=== PATIENT | male | born 1960 | race Caucasian/White ===

== ENCOUNTER 2017-05-29 19:04 | Observation (INO) ==
[2017-05-29 21:55] LABS: Basophils % 0.5 %; Eosinophils # 0.2 K/mcL (0.0-0.6); Eosinophils % 2.3 %; Hematocrit 40.5 % (37.5-50.1); Hemoglobin 13.6 g/dL (12.9-16.9); Immature Granulocytes % 0.3 % (0-4); Lymphocytes % 25.2 %; Mean Corpuscular HGB Conc 33.6 g/dL (31.6-35.5); Mean Corpuscular Volume 86.4 fL (83.0-100.0); Mean Platelet Volume 10.6 fL (9.4-12.4); Monocytes # 0.7 K/mcL (0.0-1.3); Monocytes % 8.2 %; Neutrophils # 5.1 K/mcL (1.6-8.9); Platelet Count 167 K/mcL (140-400); Red Blood Count 4.69 M/mcL (4.19-5.50); Red Cell Distribution Width 13.6 % (11.5-14.5); Segmented Neutrophils % 63.5 %
--- NOTE | 2017-05-29 21:59 | Emergency Department Note ---
Disposition Clinical Impression: Blood in stool, Blood clots in stool, Melena, Hematochezia, Lung nodule Disposition: Admitted As Inpatient Condition: Good Referrals: Davon Car DO [Primary Care Provider] - Forms: ED Satisfaction Letter Time of Disposition: 23:26 General Adult HPI - General Chief complaint: ED GI Bleed Stated complaint: Rectal bleeding Time Seen by Provider: 05/29/17 21:35 Source: patient, family Limitations: no limitations Nursing Notes Reviewed: Yes Vital Signs Reviewed: Yes - History of Present Illness HPI Narrative: Patient is a 56-year-old male that presents to the emergency department for having bloody bowel movements. He states that this began yesterday and then had another bloody bowel movement this morning. He states that his stools are real dark in color but he does see some bright red blood in his stool. He also reports that he has had clots in his toilet. He states that it is a dark, tarry stool. States he has never had anything like this before. Patient denies any history of Crohn's, colitis or any other bowel issues. Patient states that he does not have any abdominal pain or pain with bowel movements. He does state that he just feels like he is having a lot of gas and like his stomach is rumbling. Pain Scale: 0 - Related Data Home Medications Medication Instructions Recorded Confirmed Folic Acid 1 mg PO DAILY 10/31/15 10/31/15 Lisinopril 10 mg PO DAILY 10/31/15 10/31/15 Metformin HCl [Glucophage] 1,000 mg PO BIDWM 10/31/15 10/31/15 Potassium Chloride [K-Tab ER] 20 meq PO QAM 10/31/15 10/31/15 Torsemide [Demadex] 20 mg PO BID 10/31/15 10/31/15 predniSONE [PredniSONE] 5 mg PO DAILY 10/31/15 10/31/15 traMADol [Ultram] 100 mg PO TID PRN 10/31/15 10/31/15 Previous Rx's Medication Instructions Recorded Aspirin Enteric Coated [Aspirin EC] 325 mg PO QAM #30 tablet. 11/01/15 Atorvastatin [Lipitor] 40 mg PO HS #30 tablet 11/01/15 Allergies Allergy/AdvReac Type Severity Reaction Status Date / Time No Known Allergies Allergy Verified 01/20/15 10:17 All systems ED: reviewed and negative except as stated. Constitutional: Reports: weakness Gastrointestinal: Reports: hematemesis, melena Past Medical History - Past Medical History Medical history: Reports: diabetes, hypertension, RA Surgical history: Reports: other (Bilateral knees) Psychiatric history: Reports: no psych history - Social History Smoking Status: Former smoker Smokeless Tobacco Status: No Alcohol use: Reports: none Drug use: Reports: none Physical Exam - General Limitations: no limitations General appearance: alert, in no apparent distress - Head Head exam: atraumatic, normocephalic - Eye Eye exam: Present: normal appearance, EOMI - Neck Neck exam: Present: normal inspection, full ROM, trachea midline - Respiratory Respiratory exam: Present: normal lung sounds bilaterally. Absent: respiratory distress, wheezes - Cardiovascular Cardiovascular exam: Present: regular rate, normal rhythm, normal heart sounds, +S1, +S2 - Abdominal Exam Abdominal exam: Present: soft, tenderness, normal bowel sounds Abdominal tenderness: Present: LLQ, mild - Rectal Exam Counselor Camp present during exam: No Rectal exam: Present: normal rectal tone, bloody stool - Neurological Exam Neurological exam: Present: alert, oriented X3 - Psychiatric Psychiatric exam: Present: normal affect, normal mood - Skin Skin exam: Present: warm, dry, intact Course Vital Signs Temperature 98.4 F 05/29/17 19:39 Pulse Rate 99 05/29/17 19:39 Respiratory Rate 18 05/29/17 19:39 Blood Pressure 171/85 05/29/17 19:39 O2 Sat by Pulse Oximetry 97 05/29/17 19:39 Temperature 98.4 F 05/29/17 19:39 Pulse Rate 99 05/29/17 19:39 Respiratory Rate 18 05/29/17 19:39 Blood Pressure 171/85 05/29/17 19:39 O2 Sat by Pulse Oximetry 97 05/29/17 19:39 Oxygen Delivery Oxygen Delivery Room Air Medical Decision Making - MDM Narrative Medical decision making narrative: Due to the patient having blood in stool we will order a CBC, CMP, lactic, troponin, CT of the abdomen and pelvis, fecal occult and type and screen. Patient had an elevated blood glucose of 283 and a positive fecal occult. Patient has stable hemoglobin. Lactic was 1.2. Troponin was negative. CT scan was negative for obstructive uropathy however there is concern for possible metastatic disease to the lung. So we have ordered a CT of the chest. The patient will need to be admitted to the hospital for further evaluation and management. Patient is currently stable but due to the amount of blood that the patient states that he has been passing in his stool and having a positive fecal occult suspect that the patient's hemoglobin may trending downward. Recommended therapy repeat hemoglobin and hematocrits. I called and spoke to the hospice and they recommended getting a dose of 50 mg of hydrocortisone to the patient having been on chronic steroids. Also started the patient on Protonix due to this possibly being an upper GI bleed. CT of the chest showed a pulmonary nodule. There is also possible pulmonary hypertension was noted on CT scan which could be related to all my valvular disease. Results of the CT scans have been relayed to the patient and expressed understandings of these findings. He recommended that the patient follow-up with pulmonology due to the lung nodule. I spoke to the hospital was negative except for the patient to their service. The patient will be admitted to the hospital at this time. - Medical Records Medical records reviewed: Yes I reviewed the patient's medical records. - Lab Data Lab results reviewed: Yes I reviewed the patient's lab results. Result diagrams: 05/29/17 21:47 05/29/17 21:47 Lab Results 05/29/17 05/29/17 05/29/17 Range/Units 21:47 21:47 21:47 WBC 8.0 (4.3-11.1) K/mcL RBC 4.69 (4.19-5.50) M/mcL Hgb 13.6 (12.9-16.9) g/dL Hct 40.5 (37.5-50.1) % MCV 86.4 (83.0-100.0) fL MCH 29.0 (28.0-33.3) pg MCHC 33.6 (31.6-35.5) g/dL RDW 13.6 (11.5-14.5) % Plt Count 167 (140-400) K/mcL MPV 10.6 (9.4-12.4) fL Immature Gran % 0.3 (0-4) % Seg Neutrophils % 63.5 % Lymphocytes % 25.2 % Monocytes % 8.2 % Eosinophils % 2.3 % Basophils % 0.5 % Neutrophils # 5.1 (1.6-8.9) K/mcL Lymphocytes # 2.0 (0.6-4.6) K/mcL Monocytes # 0.7 (0.0-1.3) K/mcL Eosinophils # 0.2 (0.0-0.6) K/mcL Basophils # 0.0 (0.0-0.2) K/mcL PT 10.8 (9.4-12.1) Seconds INR 1.0 APTT 26.0 (26.0-36.0) Seconds Sodium 133 L (136-145) mEq/L Potassium 4.2 (3.5-5.1) mEq/L Chloride 103 (98-107) mEq/L Carbon Dioxide 25 (23-29) mEq/L BUN 17 (6-20) mg/dL Creatinine 0.77 (0.70-1.30) mg/dL Est GFR ( Amer) > 60 (> 60) Est GFR (Non-Af Amer) > 60 (> 60) BUN/Creatinine Ratio 22 (6-26) Glucose 283 H (70-105) mg/dL Calculated Osmolality 288 (280-300) Lactic Acid (0.5-2.2) mmol/L Calcium 9.2 (8.6-10.3) mg/dL Total Bilirubin 0.7 (0.3-1.0) mg/dL AST 15 (13-39) Units/L ALT 27 (7-52) Units/L Alkaline Phosphatase 98 (34-104) Units/L Troponin I (< 0.04) ng/mL Serum Total Protein 6.6 (6.4-8.9) g/dL Albumin 4.0 (3.5-5.7) g/dL Globulin 2.6 (2.4-3.5) g/dL Albumin/Globulin Ratio 1.5 (1.1-2.2) Lipase 13 (11-82) Units/L Stool Occult Blood (Negative) 05/29/17 05/29/17 05/29/17 Range/Units 21:47 21:47 21:58 WBC (4.3-11.1) K/mcL RBC (4.19-5.50) M/mcL Hgb (12.9-16.9) g/dL Hct (37.5-50.1) % MCV (83.0-100.0) fL MCH (28.0-33.3) pg MCHC (31.6-35.5) g/dL RDW (11.5-14.5) % Plt Count (140-400) K/mcL MPV (9.4-12.4) fL Immature Gran % (0-4) % Seg Neutrophils % % Lymphocytes % % Monocytes % % Eosinophils % % Basophils % % Neutrophils # (1.6-8.9) K/mcL Lymphocytes # (0.6-4.6) K/mcL Monocytes # (0.0-1.3) K/mcL Eosinophils # (0.0-0.6) K/mcL Basophils # (0.0-0.2) K/mcL PT (9.4-12.1) Seconds INR APTT (26.0-36.0) Seconds Sodium (136-145) mEq/L Potassium (3.5-5.1) mEq/L Chloride (98-107) mEq/L Carbon Dioxide (23-29) mEq/L BUN (6-20) mg/dL Creatinine (0.70-1.30) mg/dL Est GFR ( Amer) (> 60) Est GFR (Non-Af Amer) (> 60) BUN/Creatinine Ratio (6-26) Glucose (70-105) mg/dL Calculated Osmolality (280-300) Lactic Acid 1.2 (0.5-2.2) mmol/L Calcium (8.6-10.3) mg/dL Total Bilirubin (0.3-1.0) mg/dL AST (13-39) Units/L ALT (7-52) Units/L Alkaline Phosphatase (34-104) Units/L Troponin I < 0.03 (< 0.04) ng/mL Serum Total Protein (6.4-8.9) g/dL Albumin (3.5-5.7) g/dL Globulin (2.4-3.5) g/dL Albumin/Globulin Ratio (1.1-2.2) Lipase (11-82) Units/L Stool Occult Blood Positive A (Negative)
[2017-05-29 22:01] LABS: Prothrombin Time 10.8 Seconds (9.4-12.1)
--- NOTE | 2017-05-29 22:02 | Emergency Department Note ---
START Narrative - START START: I have personally performed a face to face evaluation on this patient. I have reviewed and agree with the care plan. History and Exam by me shows: Complains of hematochezia. Non-peritoneal abdominal exam. We will obtain CT scan, basic labs, given the degree of blood he is describing it would proceed with admission for further evaluation and trending of the hematocrit and hemoglobin.
[2017-05-29 22:09] LABS: Alanine Aminotransferase 27 Units/L (7-52); Albumin/Globulin Ratio 1.5 (1.1-2.2); Alkaline Phosphatase 98 Units/L (34-104); Aspartate Amino Transferase 15 Units/L (13-39); BUN/Creatinine Ratio 22 (6-26); Bilirubin,Total 0.7 mg/dL (0.3-1.0); Blood Urea Nitrogen 17 mg/dL (6-20); Calcium 9.2 mg/dL (8.6-10.3); Carbon Dioxide 25 mEq/L (23-29); Chloride 103 mEq/L (98-107); Globulin 2.6 g/dL (2.4-3.5); Glucose 283 mg/dL (70-105); Lipase 13 Units/L (11-82); Osmolality,Calculated 288 (280-300); Potassium 4.2 mEq/L (3.5-5.1); Sodium 133 mEq/L (136-145); Total Protein 6.6 g/dL (6.4-8.9); eGFR For African Americans > 60 (> 60); eGFR For Non-African Americans > 60 (> 60)
[2017-05-29] MEDS ORDERED: Hydrocortisone Sodium Succ 100 MG/2 ML VIAL IVP ONE (23:15)
[2017-05-29] MEDS ORDERED: Pantoprazole 80 MG in Water for inj. (sterile) 10 ML IVP ONE (23:21)
[2017-05-29] MEDS: Pantoprazole 40 MG in 0.9 % Sodium Chloride Mini Bag 100 ML IVC SCH (23:38)
--- NOTE | 2017-05-29 23:52 | Emergency Department Note ---
START Narrative - START START: Dr. Bruno notified of CT read by phone.
[2017-05-30] MEDS ORDERED: Naloxone 0.4 MG/ML INJ IVP PRN (02:15)
[2017-05-30] MEDS ORDERED: Acetaminophen 325 MG TABLET PO PRN (02:15)
[2017-05-30] MEDS ORDERED: *HR* Dextrose 50 % in Water (Syg) 50 ML SYRINGE IVP PRN (02:19)
[2017-05-30] MEDS ORDERED: Dextrose Gel 15 GM/37.5 ML TUBE PO PRN ×2 (02:19)
[2017-05-30] MEDS ORDERED: D5% in Water 1,000 ML IVC PRN (02:19)
--- NOTE | 2017-05-30 03:16 | Internal Med History&Physical ---
Date of Encounter: 05/30/17 Time of Encounter: 01:00 Assessment and Plan (1) Rectal bleed Current visit: Yes Status: Acute Pt report rectal bleed with dark blood, FOBT positive. - Pt's Hgb and Vitals are stable now. - Cont to monitor vitals and H/H closely - IV PPI drip - NPO, IVF - GI consult. (2) Lung nodule Current visit: Yes Status: Acute Incidentally finding from CT chest. Pt was informed and will f/u with pulmonology as outpatient. (3) Morbid obesity with BMI of 40.0-44.9, adult Current visit: No Status: Acute Need life style modification. (4) HTN (hypertension) Current visit: No Status: Chronic BP is not high now, will hold BP med at this point, resume home med when diet is resumed. Qualifiers: Hypertension type: essential hypertension Qualified Code(s): I10 - Essential (primary) hypertension (5) Diabetes mellitus Current visit: No Status: Chronic Will place pt on SSI Qualifiers: Diabetes mellitus type: type 2 Diabetes mellitus complication status: with unspecified complications Diabetes mellitus local company intermodal truck driver insulin use: without local company intermodal truck driver use Qualified Code(s): E11.8 - Type 2 diabetes mellitus with unspecified complications (6) DVT prophylaxis Current visit: No Status: Acute EPCD (7) Abnormal EKG Current visit: Yes Status: Acute Pt's EKG shows possibly altered sinus and junctional rhythm, no bradycardia, pt has no chest pain or palpitation. - Will place pt on tele. - Wanting for the final report of EKG from cardiology. - Cardio consult if indicated. (8) Chronic steroid use Current visit: Yes Status: Acute Pt Will hold po prednisone and place on stress dose of hydracortisone. (9) Pulmonary valve disease Current visit: Yes Status: Acute Pt said he has pulmonary valve disease since , not sure what kind of abnormality. Two previous Echo reviewed, PV is not well visualized per echo. Internal Medicine - H&P: HPI Chief complaint: Rectal bleeding Admitted From: Home Plans for Post Hospital Care: Home History of present illness: Mr. Granados is a 56 year old male with hx of RA on chronic steroid use, DM, HTN, pulmonary valve disease from , present to ER for rectal bleeding. Pt said since last night, he noticed dark blood in stool and mixed with stool. He again noticed dark blood in stool in the morning today and in the evening, with some clots. 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 Pt denies abd pain, nausea, or vomiting. He has on and off diarrhea for about 3-4 weeks. Pt denies lightheaded, dizziness, SOB, or chest pain. In ER, his vitals and Hgb is stable. Pt was admitted for GI bleed. Pt has never had colonoscope done before. Past Med Surg Social Fam HX - Past Medical History Medical history: diabetes, hypertension, RA Psychiatric history: no psych history - Past Surgical History Surgical History: other (Bilateral knees) - Social History Smoking Status: Former smoker Smokeless Tobacco Status: No Alcohol use: none Drug use: none - Family History Mother Living Status: Still Living Hx Family Endocrine Disorder: Yes (diabetes) Hx Family Neurologic Disorders: No Internal Medicine - H&P: Meds Folic Acid 1 mg PO DAILY 10/31/15 [History] Lisinopril 10 mg PO DAILY 10/31/15 [History] Metformin HCl [Glucophage] 1,000 mg PO BIDWM 10/31/15 [History] Potassium Chloride [K-Tab ER] 20 meq PO QAM 10/31/15 [History] Torsemide [Demadex] 20 mg PO BID 10/31/15 [History] predniSONE [PredniSONE] 5 mg PO DAILY 10/31/15 [History] traMADol [Ultram] 100 mg PO TID PRN 10/31/15 [History] Aspirin Enteric Coated [Aspirin EC] 325 mg PO QAM #30 tablet. 11/01/15 [Rx] Atorvastatin [Lipitor] 40 mg PO HS #30 tablet 11/01/15 [Rx] 3 Allergy/AdvReac Type Severity Reaction Status Date / Time No Known Allergies Allergy Verified 01/20/15 10:17 All Systems PM: A 10-system review of systems was performed and is negative for pertinent findings except as documented above in the HPI. - Constitutional Vitals: Temp Pulse Resp BP Pulse Ox 97.8 F 96 16 138/75 95 05/30/17 00:20 05/30/17 00:20 05/30/17 00:20 05/30/17 00:20 05/30/17 00:20 General appearance: Present: A&O X 3, morbidly obese, no acute distress, answers questions appropriately - Head Head exam: Present: atraumatic, normocephalic - Eye Eye exam: Present: PERRL, conjuntiva pink, sclera anicteric Pupils: Present: PERRL - Neck Neck exam general surgery: Present: supple, trachea midline. Absent: lymphadenopathy - Respiratory Respiratory exam: Present: CTAB. Absent: accessory muscle use, rales, rhonchi, wheezes - Cardiovascular Cardiovascular exam: Present: irregular rhythm, +S1, +S2. Absent: diastolic murmur, gallop, rubs, systolic murmur - GI/Abdominal GI/Abdominal exam: Present: normal bowel sounds, soft, no peritoneal signs. Absent: distended, tenderness - Extremities Exam Extremities exam: Present: warm, radial pulses palpable and symmetrical. Absent : calf tenderness, cyanotic, pedal edema - Neurological Exam Neurological exam: Present: CN II-XII intact, oriented X3, no focal deficits. Absent: pronater drift, facial droop, speech deficit - Skin Skin exam: Present: dry, intact Internal Med - H&P Results - Labs CBC & Chem 7: 05/29/17 21:47 05/29/17 21:47 - EKG Data -: EKG Interpreted by Myself (seems alternated sinus and junctional rhythms with PACs) - EKG Data Prior EKG available for review: yes When compared to previous EKG: there are significant changes Interpretation IM: normal EKG
[2017-05-30] MEDS: Pantoprazole 40 MG in 0.9 % Sodium Chloride Mini Bag 100 ML IVC SCH (03:49)
[2017-05-30] MEDS: 0.9 % Sodium Chloride 1,000 ML IVC SCH ×2 (03:49→13:30)
[2017-05-30 05:49] LABS: Basophils % 0.5 %; Eosinophils % 0.4 %; Hematocrit 39.7 % (37.5-50.1); Hemoglobin 13.1 g/dL (12.9-16.9); Immature Granulocytes % 0.4 % (0-4); Lymphocytes # 1.3 K/mcL (0.6-4.6); Lymphocytes % 15.3 %; Mean Corpuscular Hemoglobin 28.7 pg (28.0-33.3); Mean Corpuscular Volume 87.1 fL (83.0-100.0); Mean Platelet Volume 10.8 fL (9.4-12.4); Monocytes # 0.5 K/mcL (0.0-1.3); Monocytes % 5.8 %; Neutrophils # 6.4 K/mcL (1.6-8.9); Platelet Count 172 K/mcL (140-400); Red Blood Count 4.56 M/mcL (4.19-5.50); Red Cell Distribution Width 13.6 % (11.5-14.5); Segmented Neutrophils % 77.6 %
[2017-05-30 06:14] LABS: BUN/Creatinine Ratio 24 (6-26); Blood Urea Nitrogen 18 mg/dL (6-20); Calcium 9.1 mg/dL (8.6-10.3); Carbon Dioxide 23 mEq/L (23-29); Chloride 105 mEq/L (98-107); Glucose 242 mg/dL (70-105); Magnesium 1.8 mg/dL (1.6-2.6); Osmolality,Calculated 290 (280-300); Potassium 4.3 mEq/L (3.5-5.1); Sodium 135 mEq/L (136-145); eGFR For African Americans > 60 (> 60); eGFR For Non-African Americans > 60 (> 60)
[2017-05-30] MEDS: Insulin LISPRO 300 UNITS/3 ML VIAL SQ SCH ×4 (06:33→23:20)
[2017-05-30] MEDS ORDERED: Hydrocortisone Sodium Succ 100 MG/2 ML VIAL IVP SCH (08:00)
[2017-05-30] MEDS ORDERED: traMADol 50 MG TABLET PO PRN (08:48)
[2017-05-30] MEDS: traMADol 50 MG TABLET PO PRN ×2 (09:18→20:24)
--- NOTE | 2017-05-30 11:43 | Gastroenterology Consult Note ---
<Steffany Fitzgerald - Last Filed: 05/30/17 11:40> Date of Encounter: 05/30/17 Time of Encounter: 09:30 - Assessment and plan (1) Rectal bleed Current Visit: Yes Status: Acute Assessment and plan: 56 year old male with rectal bleeding and passing clots. He is on asa and chronic prednisone at home. He denies prior scopes. He denies abdominal pain, nausea and vomiting. Hgb is stable, will monitor. Will give clear liquids today , prep for colonoscopy and schedule for tomorrow. - Time Spent With Patient Total time spent is greater than 50% in coordination of care (as documented) at patient's floor/unit and/or counseling patient: GI History of Present Illness - Data of Consult Patient: new to practice Consult date: 05/30/17 Requesting Physician: Woo Khanna - Consult Narrative Reason for consult: gi bleed History of present illness: Mr. Granados is a 56 year old male with hx of RA on chronic steroid use, DM, HTN, pulmonary valve disease from , present to ER for rectal bleeding. He states he had one dark red stool followed by several bright red stools with blood clots yesterday. He denies nausea, or vomiting. He reports increased GERD symptoms the last month and has been taking TUMS, he denies any PPI at home. He reports feeling very weak yesterday. He has on and off diarrhea for about 3-4 weeks. Pt denies lightheaded, dizziness, SOB, or chest pain. In ER, his vitals and Hgb was 13.1. Colonoscopy: denies EGD: denies NSAIDS/ASA ASA 325 mg Anticoagulants: denies Past Med Surg Social Fam HX - Past Medical History Medical history: diabetes, hypertension, RA Psychiatric history: no psych history - Past Surgical History Surgical History: other (Bilateral knees) - Social History Smoking Status: Former smoker Smokeless Tobacco Status: No Alcohol use: none Drug use: none - Family History Mother Living Status: Still Living Hx Family Endocrine Disorder: Yes (diabetes) Hx Family Neurologic Disorders: No Review of Systems: GI: as per SN[place]QUAL[place]E GENERAL: denies fever, or chills EYES: denies yellow discoloration ENT: denies pain with swallowing or difficulty swallowing CARDIO: denies chest pain, palpitations RESP: No Shortness of breath with exertion : denies change in color of urine NEURO: weakness HEME: Denies any bruising MS: denies joint pain, joint swelling or back pain. DERM: denies rash or itching - Constitutional Vitals: Temp Pulse Resp BP Pulse Ox 98.4 F 84 16 133/76 96 05/30/17 11:17 05/30/17 11:17 05/30/17 11:17 05/30/17 11:17 05/30/17 11:17 Exam: CONSTITUTIONAL:~alert, no acute distress.~HEAD:~normocephalic.~EYES:~no jaundice.~NECK:~no obvious swelling.~HEART:~regular rate and rhythm, no murmurs. ~LUNGS:~bilateral good air entry.~ABDOMEN:~obese, non distended, soft, non tender, no masses palpable, no organomegaly.~RECTAL EXAM:~Deferred.~EXTREMITIES: ~no clubbing, cyanosis or edema.~SKIN:~no stigmata of chronic liver disease.~ NEUROLOGIC:~no obvious focal defect.~~~~ Results - Labs CBC & Chem 7: 05/30/17 05:38 05/30/17 05:38 Labs: Last Result Calcium 9.1 mg/dL (8.6-10.3) 05/30/17 05:38 Troponin I < 0.03 ng/mL (< 0.04) 05/29/17 21:47 Stool Occult Blood Positive (Negative) A 05/29/17 21:58 Entire Visit Hgb 13.1 g/dL (12.9-16.9) 05/30/17 05:38 Hct 39.7 % (37.5-50.1) 05/30/17 05:38 PT 10.8 Seconds (9.4-12.1) 05/29/17 21:47 Total Bilirubin 0.7 mg/dL (0.3-1.0) 05/29/17 21:47 AST 15 Units/L (13-39) 05/29/17 21:47 ALT 27 Units/L (7-52) 05/29/17 21:47 Lipase 13 Units/L (11-82) 05/29/17 21:47 - ABG ABG results: PT/INR, D-dimer PT 10.8 Seconds (9.4-12.1) 05/29/17 21:47 Consult Discharge Plan - Plan Referrals: Daovn Car DO [Primary Care Provider] - <Tiffani Rodney - Last Filed: 05/30/17 14:46> Date of Encounter: 05/30/17 Time of Encounter: 10:00 - Time Spent With Patient Total time spent is greater than 50% in coordination of care (as documented) at patient's floor/unit and/or counseling patient: GI History of Present Illness - Data of Consult Requesting Physician: Woo Khanna - Consult Narrative History of present illness: Mr. Granados is a 56 year old male - Constitutional Vitals: Temp Pulse Resp BP Pulse Ox 98.4 F 84 16 133/76 96 05/30/17 11:17 05/30/17 11:17 05/30/17 11:17 05/30/17 11:17 05/30/17 11:17 Results - Labs CBC & Chem 7: 05/30/17 05:38 05/30/17 05:38 Labs: Last Result Calcium 9.1 mg/dL (8.6-10.3) 05/30/17 05:38 Troponin I < 0.03 ng/mL (< 0.04) 05/29/17 21:47 Stool Occult Blood Positive (Negative) A 05/29/17 21:58 Entire Visit Hgb 13.1 g/dL (12.9-16.9) 05/30/17 05:38 Hct 39.7 % (37.5-50.1) 05/30/17 05:38 PT 10.8 Seconds (9.4-12.1) 05/29/17 21:47 Total Bilirubin 0.7 mg/dL (0.3-1.0) 05/29/17 21:47 AST 15 Units/L (13-39) 05/29/17 21:47 ALT 27 Units/L (7-52) 05/29/17 21:47 Lipase 13 Units/L (11-82) 05/29/17 21:47 - ABG ABG results: PT/INR, D-dimer PT 10.8 Seconds (9.4-12.1) 05/29/17 21:47 - Attending Attestation I examined this patient and my medical decision-making was reviewed with the Resident Physician. I agree with the documented findings, disposition and treatment plan as described except to the extent set forth below. Patient with rectal bleeding bleeding and also has new onset GERD. We will do an EGD for his GERD symptoms and also do a colonoscopy because of lower GI bleeding
[2017-05-30] MEDS ORDERED: SODIUM CHLORIDE/NAHCO3/KCL/PEG 4,000 ML SOLN.RECON PO ONE (16:00)
[2017-05-30] MEDS: Pantoprazole 40 MG VIAL IVP SCH (17:08)
[2017-05-31] MEDS: Pantoprazole 40 MG VIAL IVP SCH (06:46)
[2017-05-31] MEDS: Insulin LISPRO 300 UNITS/3 ML VIAL SQ SCH (06:51)
[2017-05-31 07:30] LABS: BUN/Creatinine Ratio 20 (6-26); Blood Urea Nitrogen 15 mg/dL (6-20); Calcium 8.6 mg/dL (8.6-10.3); Carbon Dioxide 22 mEq/L (23-29); Chloride 107 mEq/L (98-107); Glucose 171 mg/dL (70-105); Osmolality,Calculated 285 (280-300); Potassium 3.9 mEq/L (3.5-5.1); Sodium 135 mEq/L (136-145); eGFR For African Americans > 60 (> 60); eGFR For Non-African Americans > 60 (> 60)
--- NOTE | 2017-05-31 07:33 | Anesthesia Evaluation PreOp ---
Date of Encounter: 05/31/17 Time of Encounter: 07:31 - Past History Planned Operation: Colonoscopy Cardiac History: HTN Pulmonary History: Former smoker (quit over 10 years ago), Other (Lung nodule) [employer]ILER [employer] History: TIA (4 years ago) Other Medical History: Diabetes Type II, Other (Morbid Obesity, BMI-43.8) Anesthesia History: No Prior Anesthetic Complications, Past Anesthesia ( Bilateral TKR) Alcohol Use: none Drug use: none Medications and Allergies Lisinopril 10 mg PO DAILY 10/31/15 [History] Metformin HCl [Glucophage] 1,000 mg PO BIDWM 10/31/15 [History] Potassium Chloride [K-Tab ER] 20 meq PO QAM 10/31/15 [History] Torsemide [Demadex] 20 mg PO BID 10/31/15 [History] predniSONE [PredniSONE] 2.5 mg PO DAILY 10/31/15 [History] traMADol [Ultram] 100 mg PO TID PRN 10/31/15 [History] Aspirin Enteric Coated [Aspirin EC] 325 mg PO QAM #30 tablet. 11/01/15 [Rx] Atorvastatin [Lipitor] 40 mg PO HS #30 tablet 11/01/15 [Rx] Tofacitinib Citrate [Xeljanz Xr] 1 tab PO DAILY 05/30/17 [History] 3 Allergy/AdvReac Type Severity Reaction Status Date / Time No Known Allergies Allergy Verified 01/20/15 10:17 - Meds/Allergy Pre-op Review Medications Reviewed: Yes Allergies Reviewed: Yes Beta Blockers on Current Med List: No Anesthesia Results - Labs 05/30/17 05:38 05/31/17 06:45 ECHO: Date of Study: 11/01/2015 Impressions: LVEF 55%. Normal left ventricular size and systolic function. There is evidence of mild diastolic dysfunction of the left ventricle. Normal right ventricular size and function. No significant valvular dysfunction. No significant TR gradient to estimate RVSP. Saline contrast injection was suboptimal for detection of PFO. - Imaging EKG: report reviewed (SINUS TACHYCARDIA POSSIBLE RIGHT VENTRICULAR CONDUCTION DELAY) Anesthesia Exam Vital Signs/O2 Sat, Most Current Temp Pulse Resp BP Pulse Ox 98.4 F 80 20 160/95 95 05/31/17 07:16 05/31/17 07:16 05/31/17 07:16 05/31/17 07:16 05/31/17 07:16 NPO (# of Hours): > 8 hrs Pain Scale: 0 Pain Scale Used: Numeric (1 - 10) - HEENT Pupil (Motor): Pupils equal, EOMI Mallampati: III Teeth: Normal Oral Opening: Greater than 3 - BOILER FIREMAN LOC: Oriented BOILER FIREMAN Motor: Normal RUE, Normal LUE, Normal RLE, Normal LLE, Normal Face [employer]ILER FI[employer] Sensory: Normal: RUE, LUE, RLE, LLE, Face - Cardiac Rhythm: Regular Murmur: None JVD: No Carotid Bruit: No - Pulmonary Breath Sounds: bilateral Clear Respiratory Effort: Symmetrical Anesthesia Assess/Plan ASA Score: 3 Modified Margy Scale for Level of Consciousness: Cooperative, oriented, and tranquil Anesthetic Plan: MAC Autologous Blood: Yes Monitoring Plan: Standard Monitors Recovery Plan: Other
[2017-05-31] MEDS ORDERED: Propofol 500 MG/50 ML INFUS..BTL ONE (07:46)
[2017-05-31] MEDS ORDERED: Lidocaine -MPF 2% 2 ML VIAL ONE (07:46)
[2017-05-31] MEDS ORDERED: Ketamine *HR* 500 MG/10 ML MDV ONE (07:48)
[2017-05-31] MEDS ORDERED: Tetracaine/Benzocaine/Butamben 200MG/SPRAY (100SPY/BOT) MM ONE (08:03)
[2017-05-31 08:27] LABS: Basophils % 0.6 %
[2017-05-31 08:34] LABS: Eosinophils # 0.2 K/mcL (0.0-0.6); Eosinophils % 2.8 %; Hematocrit 40.2 % (37.5-50.1); Immature Granulocytes % 0.3 % (0-4); Immature Platelets 7.2 % (1.1-6.1); Lymphocytes # 1.4 K/mcL (0.6-4.6); Lymphocytes % 21.9 %; Mean Corpuscular HGB Conc 32.3 g/dL (31.6-35.5); Mean Corpuscular Hemoglobin 28.2 pg (28.0-33.3); Mean Corpuscular Volume 87.2 fL (83.0-100.0); Mean Platelet Volume 11.4 fL (9.4-12.4); Monocytes # 0.6 K/mcL (0.0-1.3); Monocytes % 9.4 %; Neutrophils # 4.2 K/mcL (1.6-8.9); Platelet Count 166 K/mcL (140-400); Red Blood Count 4.61 M/mcL (4.19-5.50); Red Cell Distribution Width 13.5 % (11.5-14.5)
[2017-05-31] MEDS ORDERED: predniSONE 5 MG TABLET PO SCH (09:00)
[2017-05-31 09:35] VITALS: BP 147/97
--- NOTE | 2017-05-31 09:55 | Discharge Summary ---
Date of Encounter: 05/31/17 Time of Encounter: 09:53 - Discharge Diagnosis (1) Rectal mass Priority: Primary Status: Acute (2) Lung nodule Priority: Primary Status: Acute (3) Rectal bleed Priority: Primary Status: Acute (4) Morbid obesity with BMI of 40.0-44.9, adult Priority: Secondary Status: Acute (5) TIA (transient ischemic attack) Priority: Secondary Status: Resolved Qualifiers: Transient cerebral ischemia type: unspecified Qualified Code(s): G45.9 - Transient cerebral ischemic attack, unspecified (6) HTN (hypertension) Priority: Secondary Status: Chronic Qualifiers: Hypertension type: essential hypertension Qualified Code(s): I10 - Essential (primary) hypertension (7) Diabetes mellitus Priority: Secondary Status: Chronic Qualifiers: Diabetes mellitus type: type 2 Diabetes mellitus complication status: with unspecified complications Diabetes mellitus chcf insulin use: without chcf use Qualified Code(s): E11.8 - Type 2 diabetes mellitus with unspecified complications - Discharge Medications Home Medications: Lisinopril 10 mg PO DAILY 10/31/15 [History] Metformin HCl [Glucophage] 1,000 mg PO BIDWM 10/31/15 [History] Potassium Chloride [K-Tab ER] 20 meq PO QAM 10/31/15 [History] Torsemide [Demadex] 20 mg PO BID 10/31/15 [History] predniSONE [PredniSONE] 2.5 mg PO DAILY 10/31/15 [History] traMADol [Ultram] 100 mg PO TID PRN 10/31/15 [History] Aspirin Enteric Coated [Aspirin EC] 325 mg PO QAM #30 tablet.dr 11/01/15 [Rx] Atorvastatin [Lipitor] 40 mg PO HS #30 tablet 11/01/15 [Rx] Tofacitinib Citrate [Xeljanz Xr] 1 tab PO DAILY 05/30/17 [History] Allergies/Adverse Reactions: 3 Allergy/AdvReac Type Severity Reaction Status Date / Time No Known Allergies Allergy Verified 01/20/15 10:17 Procedures/tests Complete & Pending: Procedures Performed prior 72 hours Category Date Time Status EKG [ECG 12 lead ECG] [ECG] Stat Y 05/30/17 01:14 Completed Date of admission: 05/29/17 23:32 Primary care physician: Davon Car Consults: 05/30/17 02:22 Consult to Gastroenterology [CONS] Routine Consulting Provider: Gastroenterology Doreen Reason for Consult: GI bleed Call Completed: No - Patient Status Disposition: Home, Self-Care Condition: Fair Overall status at discharge: patient is back to baseline - Discharge Instructions Instructions: Chronic Hypertension (DC) Follow Up With: Davon Car DO [Primary Care Provider] - 06/04/17 1:00 pm ([address] [employer]UDGET ACCOUNTANT) Tiffani Rodney MD [Partnered Physician] - (Office will call you with an appointment date and time. If you do not her from them by Saturday morning pleasae call the office at the above number. Thank you!!) - Diet and Activity Activity: resume usual activities as tolerated Diet: diabetic diet Hospital course: Mr. Granados is a 56 year old male with hx of RA on chronic steroid use, DM, HTN, pulmonary valve disease from , presented to ER for rectal bleeding. The patient had dark blood stools at home mixed with clots which prompted his visit to the ER. His workup in the ED showed stable hemoglobin. He was hemodynamically stable. He was admitted to the hospitalist service with a consult to gastroenterology. He did have a CT abdomen and pelvis done in the ED which showed no acute findings in the abdomen however there was findings of pulmonary nodules versus pulmonary metastatic disease in the chest. CT chest was done because of that which showed new pulmonary nodules since 2011 revealed largest being 11 mm average diameter the posterior right upper lobe. Recommendations were to have follow-up reduced dose CT in 3 months. There was also marked enlargement of the left main pulmonary artery suspicious for underlying pulmonary valvular disease. Regarding his hospitalization, the patient was seen by GI and underwent an upper and lower scopes without coming back showing LA grade a reflux esophagitis. There was also chronic gastritis and did his colonoscopy showed an ulcerated nonobstructing large mass in the rectosigmoid colon. The mass was circumferential partially. It measured about 5 cm in length. No bleeding was present. This was biopsied. There is also a 9 mm polyp found in the proximal transverse colon. The polyposis.. It was removed. There was also 14 mm polyp found in the distal transverse colon that was sessile and was removed. His lower scope showed a few polyps. The patient tolerated diet and had no further bleeding after the procedure. GI was okay with him being discharged with follow-up with them when then on Saturday at which point biopsy results would be available and further workup would be done regarding staging as well as follow-up and referral to oncology. The patient was made aware of these recommendations and he was stable for discharge on 05/31/2017. - Time Spent with Patient Total time spent providing and/or coordinating discharge services: - Constitutional Vitals: Temp Pulse Resp BP Pulse Ox 97.8 F 81 18 147/97 99 05/31/17 08:02 05/31/17 09:28 05/31/17 08:02 05/31/17 09:28 05/31/17 09:28 General appearance: Present: A&O X 3, morbidly obese, no acute distress, answers questions appropriately Exam: GEN: NAD CVS: RRR. S1, S2, No m/r/g RESP: CTAB ABD: Soft, NT, ND, +BS EXT: No edema. 2+ DP. No rashes NEURO: Nonfocal - VTE Reasons for not Prescribing Prophylaxis: Medical contraindication
--- NOTE | 2017-06-01 09:19 | Electrocardiograph Report ---
[place] [id number] Test Date: 2017-05-30 Pat Name: Cholo Granados Department: 112 Room: 2A44 Gender: M [employer]: : 1960 Requested By: Sin Alvarez Order Number: [id number] Reading MD: Jack Melendez DO Measurements Intervals [place] Rate: 86 P: 269 MN: 110 QRS: 58 QRSD: 92 T: 69 QT: 344 QTc: 387 Interpretive Statements Possible ectopic atrial rhythm Premature atrial contractions Electronically Signed On 06-01-2017 9:17:49 EST by Jack Melendez DO
== END 2017-05-31 11:18 | disposition home or self-care (01) ==
LOC: 2ANU 19:04 → EMEROO 19:04 → 2ANU 05-30 00:17
PROVIDERS: ADMIT Pediatrics; ATTEND Internal Medicine

== ENCOUNTER 2019-06-09 13:48 | Inpatient (IN) ==
[2019-06-09] MEDS ORDERED: 0.9 % Sodium Chloride 1,000 ML IVC ONE (14:24)
[2019-06-09 15:01] LABS: Basophils # 0.1 K/mcL (0.0-0.2); Basophils % 0.9 %; Eosinophils % 0.1 %; Hematocrit 38.7 % (37.5-50.1); Hemoglobin 12.5 g/dL (12.9-16.9); Immature Granulocytes % 1.7 % (0-4); Lymphocytes # 0.9 K/mcL (0.6-4.6); Lymphocytes % 5.9 %; Mean Corpuscular HGB Conc 32.3 g/dL (31.6-35.5); Mean Corpuscular Hemoglobin 27.8 pg (28.0-33.3); Monocytes % 6.5 %; Neutrophils # 12.8 K/mcL (1.6-8.9); Platelet Count 302 K/mcL (140-400); Red Cell Distribution Width 17.6 % (11.5-14.5); Segmented Neutrophils % 84.9 %
[2019-06-09 15:15] LABS: Alanine Aminotransferase 16 Units/L (7-52); Albumin 3.6 g/dL (3.5-5.7); Alkaline Phosphatase 73 Units/L (34-104); Aspartate Amino Transferase 9 Units/L (13-39); BUN/Creatinine Ratio 23 (6-26); Bilirubin,Direct 0.3 mg/dL (0.0-0.2); Bilirubin,Indirect 0.8 mg/dL (0.0-1.0); Bilirubin,Total 1.1 mg/dL (0.3-1.0); Blood Urea Nitrogen 23 mg/dL (6-20); Calcium 9.5 mg/dL (8.6-10.3); Carbon Dioxide 20 mEq/L (23-29); Chloride 93 mEq/L (98-107); Globulin 3.5 g/dL (2.4-3.5); Glucose 491 mg/dL (70-105); Magnesium 1.6 mg/dL (1.6-2.6); Osmolality,Calculated 285 (280-300); Phosphorous 3.9 mg/dL (2.7-4.5); Potassium 4.6 mEq/L (3.5-5.1); Sodium 125 mEq/L (136-145); Total Protein 7.1 g/dL (6.4-8.9); eGFR For African Americans > 60 (> 60); eGFR For Non-African Americans > 60 (> 60)
[2019-06-09] MEDS ORDERED: Insulin Regular, Human 100 UNIT/ML SQ ONE (17:15)
[2019-06-09] MEDS ORDERED: Naloxone 0.4 MG/ML INJ IVP PRN (20:23)
[2019-06-09] MEDS ORDERED: Ondansetron 4 MG/2 ML VIAL IVP PRN (20:23)
[2019-06-09] MEDS ORDERED: Acetaminophen 325 MG TABLET PO PRN (20:23)
[2019-06-09] MEDS ORDERED: Dextrose Gel 15 GM/37.5 ML TUBE PO PRN ×2 (20:26)
[2019-06-09] MEDS ORDERED: D5% in Water 1,000 ML IVC PRN (20:26)
[2019-06-09] MEDS ORDERED: *HR* Dextrose 50 % in Water (Syg) 50 ML SYRINGE IVP PRN (20:26)
[2019-06-09] MEDS: *HR* Heparin 5,000 UNIT/ML VIAL SQ SCH (23:10)
[2019-06-09] MEDS: 0.9 % Sodium Chloride 1,000 ML IVC SCH (23:12)
[2019-06-10 02:31] LABS: Basophils # 0.1 K/mcL (0.0-0.2); Basophils % 0.9 %; Eosinophils # 0.1 K/mcL (0.0-0.6); Eosinophils % 0.8 %; Hematocrit 34.3 % (37.5-50.1); Immature Granulocytes % 2.2 % (0-4); Lymphocytes % 18.5 %; Mean Corpuscular HGB Conc 31.2 g/dL (31.6-35.5); Mean Corpuscular Hemoglobin 27.9 pg (28.0-33.3); Mean Corpuscular Volume 89.6 fL (83.0-100.0); Mean Platelet Volume 9.7 fL (9.4-12.4); Monocytes # 1.3 K/mcL (0.0-1.3); Monocytes % 11.7 %; Neutrophils # 7.1 K/mcL (1.6-8.9); Platelet Count 233 K/mcL (140-400); Red Blood Count 3.83 M/mcL (4.19-5.50); Red Cell Distribution Width 17.4 % (11.5-14.5); Segmented Neutrophils % 65.9 %; White Blood Count 10.8 K/mcL (4.3-11.1)
[2019-06-10 02:41] LABS: BUN/Creatinine Ratio 25 (6-26); Blood Urea Nitrogen 22 mg/dL (6-20); Calcium 8.8 mg/dL (8.6-10.3); Carbon Dioxide 24 mEq/L (23-29); Chloride 97 mEq/L (98-107); Glucose 298 mg/dL (70-105); Magnesium 1.8 mg/dL (1.6-2.6); Osmolality,Calculated 284 (280-300); Potassium 4.4 mEq/L (3.5-5.1); Sodium 130 mEq/L (136-145); eGFR For African Americans > 60 (> 60); eGFR For Non-African Americans > 60 (> 60)
[2019-06-10 02:44] LABS: Hemoglobin 10.7 g/dL (12.9-16.9)
[2019-06-10] MEDS: *HR* Heparin 5,000 UNIT/ML VIAL SQ SCH ×3 (07:12→21:29)
[2019-06-10] MEDS: 0.9 % Sodium Chloride 1,000 ML IVC SCH (07:13)
[2019-06-10] MEDS ORDERED: Insulin LISPRO 300 UNITS/3 ML VIAL SQ SCH (07:30)
[2019-06-10] MEDS ORDERED: predniSONE 5 MG TABLET PO SCH (09:00)
[2019-06-10] MEDS ORDERED: Isovue-370 500 ML BOTTLE IVP ONE (10:21)
[2019-06-10] MEDS: Insulin LISPRO 300 UNITS/3 ML VIAL SQ SCH ×2 (11:08→16:20)
[2019-06-10] MEDS ORDERED: Piperacillin/Tazobactam 4.5 GM in 0.9 % Sodium Chloride Mini Bag 100 ML IVPB STA (15:32)
[2019-06-10] MEDS ORDERED: Clindamycin 900 MG/50 ML 900 MG/50 ML IV.SOLN IVPB SCH (16:00)
[2019-06-10] MEDS ORDERED: Piperacillin/Tazobactam 3.375 GM in 0.9 % Sodium Chloride Mini Bag 100 ML IVPB SCH (16:00)
[2019-06-10] MEDS: Clindamycin 900 MG/50 ML 900 MG/50 ML IV.SOLN IVPB SCH (16:17)
[2019-06-10] MEDS: Piperacillin/Tazobactam 3.375 GM in 0.9 % Sodium Chloride Mini Bag 100 ML IVPB SCH (16:49)
[2019-06-10 20:54] LABS: Hemoglobin 11.6 g/dL (12.9-16.9)
[2019-06-11] MEDS: Piperacillin/Tazobactam 3.375 GM in 0.9 % Sodium Chloride Mini Bag 100 ML IVPB SCH ×3 (00:38→16:36)
[2019-06-11] MEDS: Clindamycin 900 MG/50 ML 900 MG/50 ML IV.SOLN IVPB SCH ×2 (00:38→08:33)
[2019-06-11 03:59] LABS: Basophils # 0.1 K/mcL (0.0-0.2); Basophils % 1.5 %; Eosinophils # 0.1 K/mcL (0.0-0.6); Eosinophils % 1.1 %; Hematocrit 35.7 % (37.5-50.1); Hemoglobin 11.3 g/dL (12.9-16.9); Immature Granulocytes % 3.6 % (0-4); Lymphocytes # 1.8 K/mcL (0.6-4.6); Lymphocytes % 24.6 %; Mean Corpuscular HGB Conc 31.7 g/dL (31.6-35.5); Mean Corpuscular Hemoglobin 27.4 pg (28.0-33.3); Mean Corpuscular Volume 86.7 fL (83.0-100.0); Mean Platelet Volume 9.6 fL (9.4-12.4); Monocytes # 0.7 K/mcL (0.0-1.3); Neutrophils # 4.5 K/mcL (1.6-8.9); Platelet Count 247 K/mcL (140-400); Red Blood Count 4.12 M/mcL (4.19-5.50); Segmented Neutrophils % 60.2 %; White Blood Count 7.5 K/mcL (4.3-11.1)
[2019-06-11 04:19] LABS: BUN/Creatinine Ratio 20 (6-26); Blood Urea Nitrogen 18 mg/dL (6-20); Calcium 8.5 mg/dL (8.6-10.3); Carbon Dioxide 25 mEq/L (23-29); Chloride 99 mEq/L (98-107); Glucose 247 mg/dL (70-105); Osmolality,Calculated 282 (280-300); Potassium 4.2 mEq/L (3.5-5.1); Sodium 131 mEq/L (136-145); eGFR For African Americans > 60 (> 60); eGFR For Non-African Americans > 60 (> 60)
[2019-06-11] MEDS: *HR* Heparin 5,000 UNIT/ML VIAL SQ SCH ×3 (05:07→21:55)
[2019-06-11] MEDS: Insulin LISPRO 300 UNITS/3 ML VIAL SQ SCH ×3 (07:35→16:42)
[2019-06-11] MEDS: predniSONE 10 MG TABLET PO SCH (08:27)
[2019-06-11] MEDS: Lisinopril 20 MG TABLET PO SCH (08:27)
[2019-06-11] MEDS: Folic Acid 1 MG TABLET PO SCH (08:27)
[2019-06-11 09:06] LABS: Creatine Kinase 34 Units/L (30-223)
[2019-06-12] MEDS: Piperacillin/Tazobactam 3.375 GM in 0.9 % Sodium Chloride Mini Bag 100 ML IVPB SCH ×3 (00:45→16:17)
[2019-06-12 00:53] LABS: Basophils # 0.1 K/mcL (0.0-0.2); Basophils % 1.5 %; Eosinophils # 0.1 K/mcL (0.0-0.6); Eosinophils % 1.1 %; Hematocrit 36.3 % (37.5-50.1); Hemoglobin 11.6 g/dL (12.9-16.9); Immature Granulocytes % 3.9 % (0-4); Lymphocytes # 2.1 K/mcL (0.6-4.6); Lymphocytes % 25.2 %; Mean Corpuscular Hemoglobin 27.7 pg (28.0-33.3); Mean Corpuscular Volume 86.6 fL (83.0-100.0); Mean Platelet Volume 9.8 fL (9.4-12.4); Monocytes # 0.8 K/mcL (0.0-1.3); Monocytes % 10.2 %; Neutrophils # 4.8 K/mcL (1.6-8.9); Platelet Count 255 K/mcL (140-400); Red Blood Count 4.19 M/mcL (4.19-5.50); Red Cell Distribution Width 17.1 % (11.5-14.5); Segmented Neutrophils % 58.1 %; White Blood Count 8.3 K/mcL (4.3-11.1)
[2019-06-12 01:12] LABS: BUN/Creatinine Ratio 21 (6-26); Blood Urea Nitrogen 16 mg/dL (6-20); Calcium 8.9 mg/dL (8.6-10.3); Carbon Dioxide 25 mEq/L (23-29); Chloride 100 mEq/L (98-107); Glucose 206 mg/dL (70-105); Osmolality,Calculated 283 (280-300); Potassium 4.2 mEq/L (3.5-5.1); Sodium 133 mEq/L (136-145); eGFR For African Americans > 60 (> 60); eGFR For Non-African Americans > 60 (> 60)
[2019-06-12] MEDS: *HR* Heparin 5,000 UNIT/ML VIAL SQ SCH ×3 (05:40→21:00)
[2019-06-12] MEDS: Folic Acid 1 MG TABLET PO SCH (07:24)
[2019-06-12] MEDS: Lisinopril 20 MG TABLET PO SCH (07:24)
[2019-06-12] MEDS: predniSONE 10 MG TABLET PO SCH (07:27)
[2019-06-12] MEDS: Insulin LISPRO 300 UNITS/3 ML VIAL SQ SCH ×3 (07:28→16:16)
[2019-06-12] MEDS: Insulin DETEMIR 100 UNIT/ML X5UNITS SQ SCH (21:01)
[2019-06-13] MEDS: Piperacillin/Tazobactam 3.375 GM in 0.9 % Sodium Chloride Mini Bag 100 ML IVPB SCH ×2 (00:22→07:35)
[2019-06-13 03:27] LABS: Basophils # 0.1 K/mcL (0.0-0.2); Basophils % 1.2 %; Eosinophils # 0.1 K/mcL (0.0-0.6); Eosinophils % 1.3 %; Hematocrit 35.1 % (37.5-50.1); Hemoglobin 10.8 g/dL (12.9-16.9); Immature Granulocytes % 3.7 % (0-4); Lymphocytes % 25.9 %; Mean Corpuscular HGB Conc 30.8 g/dL (31.6-35.5); Mean Corpuscular Hemoglobin 27.8 pg (28.0-33.3); Mean Corpuscular Volume 90.2 fL (83.0-100.0); Monocytes # 0.7 K/mcL (0.0-1.3); Monocytes % 9.8 %; Neutrophils # 4.4 K/mcL (1.6-8.9); Platelet Count 260 K/mcL (140-400); Red Blood Count 3.89 M/mcL (4.19-5.50); Red Cell Distribution Width 16.9 % (11.5-14.5); Segmented Neutrophils % 58.1 %; White Blood Count 7.6 K/mcL (4.3-11.1)
[2019-06-13 03:48] LABS: BUN/Creatinine Ratio 22 (6-26); Blood Urea Nitrogen 19 mg/dL (6-20); Calcium 8.9 mg/dL (8.6-10.3); Carbon Dioxide 27 mEq/L (23-29); Chloride 101 mEq/L (98-107); Glucose 248 mg/dL (70-105); Osmolality,Calculated 289 (280-300); Potassium 4.2 mEq/L (3.5-5.1); Sodium 134 mEq/L (136-145); eGFR For African Americans > 60 (> 60); eGFR For Non-African Americans > 60 (> 60)
[2019-06-13] MEDS: *HR* Heparin 5,000 UNIT/ML VIAL SQ SCH (06:09)
[2019-06-13 07:15] VITALS: BP 124/77
[2019-06-13] MEDS: Lisinopril 20 MG TABLET PO SCH (07:32)
[2019-06-13] MEDS: Folic Acid 1 MG TABLET PO SCH (07:32)
[2019-06-13] MEDS: predniSONE 10 MG TABLET PO SCH (07:32)
[2019-06-13] MEDS: Insulin DETEMIR 100 UNIT/ML X5UNITS SQ SCH (07:32)
[2019-06-13] MEDS: Insulin LISPRO 300 UNITS/3 ML VIAL SQ SCH (07:33)
[2019-06-13] MEDS ORDERED: FLU Vac QV 19-20 (6Month+)/PF 0.5 ML SYRINGE IM ONE (08:54)
[2019-06-13] MEDS ORDERED: Aminoglycoside Consult 1 EACH MC ONE (10:22)
== END 2019-06-13 10:23 | disposition home or self-care (01) | DRG 872 ==
LOC: EMEROOARM 13:48 → 2ANU 13:48 → SUATTDRO 21:13 → 2ANU 06-10 16:06
PROVIDERS: ADMIT Internal Medicine; ATTEND Student in an Organized Health Care Education/Training Program

== ENCOUNTER 2020-01-25 19:01 | Observation (INO) ==
[2020-01-25] MEDS ORDERED: 0.9 % Sodium Chloride 1,000 ML IVC ONE ×2 (20:10→21:16)
[2020-01-25 20:56] LABS: Basophils # 0.1 K/mcL (0.0-0.2); Basophils % 0.7 %; Eosinophils % 0.1 %; Hematocrit 38.3 % (37.5-50.1); Immature Granulocytes % 1.3 % (0-4); Lymphocytes # 0.9 K/mcL (0.6-4.6); Lymphocytes % 12.2 %; Mean Corpuscular HGB Conc 31.3 g/dL (31.6-35.5); Mean Corpuscular Hemoglobin 26.9 pg (28.0-33.3); Mean Corpuscular Volume 85.9 fL (83.0-100.0); Mean Platelet Volume 10.9 fL (9.4-12.4); Monocytes # 1.1 K/mcL (0.0-1.3); Monocytes % 14.8 %; Neutrophils # 5.4 K/mcL (1.6-8.9); Platelet Count 180 K/mcL (140-400); Red Blood Count 4.46 M/mcL (4.19-5.50); Red Cell Distribution Width 20.4 % (11.5-14.5); Segmented Neutrophils % 70.9 %; White Blood Count 7.6 K/mcL (4.3-11.1)
[2020-01-25] MEDS ORDERED: *HR* FentaNYL (PF) 100 MCG/2 ML VIAL IVP ONE (21:13)
[2020-01-25 21:15] LABS: Calcium 9.4 mg/dL (8.6-10.3); Potassium 5.3 mEq/L (3.5-5.1)
[2020-01-25] MEDS ORDERED: Clindamycin 600 MG/50 ML 600 MG/50 ML IV.SOLN IVPB ONE (21:18)
[2020-01-25] MEDS ORDERED: Naloxone 0.4 MG/ML INJ IVP PRN (22:49)
[2020-01-25] MEDS ORDERED: 0.9 % Sodium Chloride 1,000 ML IVC SCH (23:00)
[2020-01-25 23:24] LABS: Bilirubin,Urine Small (Negative); Blood,Urine Moderate (Negative); Clarity,Urine Clear (Clear); Color,Urine Yellow (Yellow); Glucose,Urine (UA) Normal (Normal); Ketones,Urine Negative (Negative); Leukocyte Esterase,Urine Negative (Negative); Nitrite,Urine Negative (Negative); PH,Urine 5.5 pH Units (5.0-8.0); Protein,Urine Trace mg/dL (Neg-Trace); Specific Gravity,Urine >= 1.030 (1.010-1.025); Urobilinogen,Urine Normal (Normal)
[2020-01-25 23:33] LABS: Bacteria,Urine Few per hpf (None-Few); Calcium Oxalate Crystals,Urine Present; Hyaline Casts,Urine Many per lpf (None Seen); Mucus,Urine Few per lpf (None-Few); RBC,Urine 30-50 per hpf (0-3); Squamous Epithelial Cell,Urine Few per hpf (None-Few)
[2020-01-26] MEDS ORDERED: Hydrocortisone Sodium Succ 100 MG/2 ML VIAL IVP ONE (01:30)
[2020-01-26] MEDS ORDERED: Vancomycin 1,750 MG/517.5 ML IV.SOLN IVPB ONE (02:00)
[2020-01-26] MEDS ORDERED: Vancomycin 1,750 MG in 0.9 % Sodium Chloride 250 ML IVPB SCH (02:00)
[2020-01-26 04:56] LABS: Basophils % 0.6 %; Eosinophils % 0.3 %; Immature Granulocytes % 1.7 % (0-4); Lymphocytes % 15.3 %; Mean Corpuscular HGB Conc 30.6 g/dL (31.6-35.5); Mean Corpuscular Hemoglobin 26.5 pg (28.0-33.3); Mean Corpuscular Volume 86.7 fL (83.0-100.0); Mean Platelet Volume 10.3 fL (9.4-12.4); Monocytes # 0.9 K/mcL (0.0-1.3); Monocytes % 13.8 %; Neutrophils # 4.5 K/mcL (1.6-8.9); Platelet Count 162 K/mcL (140-400); Red Blood Count 4.15 M/mcL (4.19-5.50); Red Cell Distribution Width 20.3 % (11.5-14.5); Segmented Neutrophils % 68.3 %; White Blood Count 6.5 K/mcL (4.3-11.1)
[2020-01-26] MEDS ORDERED: Clindamycin 600 MG/50 ML 600 MG/50 ML IV.SOLN IVPB SCH (05:00)
[2020-01-26 05:29] LABS: Alanine Aminotransferase 26 Units/L (7-52); Albumin 3.6 g/dL (3.5-5.7); Albumin/Globulin Ratio 1.2 (1.1-2.2); Alkaline Phosphatase 57 Units/L (34-104); Aspartate Amino Transferase 24 Units/L (13-39); BUN/Creatinine Ratio 21 (6-26); Blood Urea Nitrogen 30 mg/dL (8-23); Calcium 8.7 mg/dL (8.6-10.3); Carbon Dioxide 21 mEq/L (23-29); Chloride 101 mEq/L (98-107); Globulin 2.9 g/dL (2.4-3.5); Glucose 115 mg/dL (70-105); Osmolality,Calculated 279 (280-300); Potassium 4.6 mEq/L (3.5-5.1); Sodium 131 mEq/L (136-145); Total Protein 6.5 g/dL (6.4-8.9); eGFR For African Americans > 60 (> 60); eGFR For Non-African Americans 52 (> 60)
[2020-01-26] MEDS ORDERED: Dextrose Gel 15 GM/37.5 ML TUBE PO PRN ×2 (06:42)
[2020-01-26] MEDS ORDERED: D5% in Water 1,000 ML IVC PRN (06:42)
[2020-01-26] MEDS ORDERED: *HR* Dextrose 50 % in Water (Vial) 50 ML VIAL IVP PRN (06:42)
[2020-01-26] MEDS: *HR* Enoxaparin 120 MG/0.8 ML SYRINGE SQ SCH ×2 (07:34→17:44)
[2020-01-26] MEDS: Insulin LISPRO 300 UNITS/3 ML VIAL SQ SCH ×3 (08:20→18:44)
[2020-01-26] MEDS: Doxycycline 100 MG CAPSULE PO SCH ×2 (09:55→20:39)
[2020-01-26] MEDS: Piperacillin/Tazobactam 3.375 GM in 0.9 % Sodium Chloride Mini Bag 100 ML IVPB SCH ×2 (09:55→17:44)
[2020-01-26] MEDS: 0.9 % Sodium Chloride 1,000 ML IVC SCH (09:57)
[2020-01-27] MEDS: Piperacillin/Tazobactam 3.375 GM in 0.9 % Sodium Chloride Mini Bag 100 ML IVPB SCH ×2 (00:15→08:03)
[2020-01-27] MEDS: 0.9 % Sodium Chloride 1,000 ML IVC SCH (00:16)
[2020-01-27 04:48] LABS: Hematocrit 32.9 % (37.5-50.1); Mean Corpuscular HGB Conc 30.1 g/dL (31.6-35.5); Mean Corpuscular Hemoglobin 26.4 pg (28.0-33.3); Mean Corpuscular Volume 87.7 fL (83.0-100.0); Mean Platelet Volume 10.2 fL (9.4-12.4); Platelet Count 146 K/mcL (140-400); Red Blood Count 3.75 M/mcL (4.19-5.50); Red Cell Distribution Width 20.2 % (11.5-14.5); White Blood Count 5.1 K/mcL (4.3-11.1)
[2020-01-27 04:51] LABS: Hemoglobin 9.9 g/dL (12.9-16.9)
[2020-01-27] MEDS ORDERED: Vancomycin 1,500 MG/265 ML IV.SOLN IVPB SCH (05:00)
[2020-01-27 05:05] LABS: BUN/Creatinine Ratio 22 (6-26); Blood Urea Nitrogen 19 mg/dL (8-23); Calcium 8.5 mg/dL (8.6-10.3); Carbon Dioxide 21 mEq/L (23-29); Chloride 104 mEq/L (98-107); Glucose 110 mg/dL (70-105); Magnesium 1.6 mg/dL (1.6-2.6); Osmolality,Calculated 281 (280-300); Potassium 4.1 mEq/L (3.5-5.1); Sodium 134 mEq/L (136-145); eGFR For African Americans > 60 (> 60); eGFR For Non-African Americans > 60 (> 60)
[2020-01-27] MEDS: *HR* Enoxaparin 120 MG/0.8 ML SYRINGE SQ SCH (05:30)
[2020-01-27 07:07] VITALS: BP 125/77
[2020-01-27] MEDS: Insulin LISPRO 300 UNITS/3 ML VIAL SQ SCH ×2 (08:03→11:38)
[2020-01-27] MEDS: Doxycycline 100 MG CAPSULE PO SCH (08:12)
[2020-01-27] MEDS ORDERED: predniSONE 10 MG TABLET PO SCH (09:00)
== END 2020-01-27 11:53 | disposition home or self-care (01) ==
LOC: CDU 19:01 → EMEROOARM 19:01 → SUATTDRO 01-26 00:22 → CDU 01-26 02:20 → 3ANU 01-26 03:24
PROVIDERS: ADMIT Student in an Organized Health Care Education/Training Program; ATTEND Internal Medicine

== ENCOUNTER 2021-01-31 15:10 | Inpatient (IN) ==
[2021-01-31] MEDS ORDERED: Cefepime HCl 2,000 MG in 0.9 % Sodium Chloride Mini Bag 100 ML IVPB ONE (20:20)
[2021-01-31] MEDS ORDERED: *HR* OxyCODONE Immed Rel 5 MG TABLET PO ONE (20:37)
[2021-01-31] MEDS ORDERED: Naloxone 0.4 MG/ML INJ IVP PRN (21:06)
[2021-01-31] MEDS ORDERED: Melatonin 3 MG TABLET PO PRN (21:06)
[2021-01-31] MEDS ORDERED: Acetaminophen 325 MG TABLET PO PRN (21:06)
[2021-01-31] MEDS ORDERED: Ondansetron 4 MG/2 ML VIAL IVP PRN (21:06)
[2021-01-31] MEDS ORDERED: 0.9 % Sodium Chloride 1,000 ML IVC SCH (21:15)
[2021-01-31 21:59] LABS: Basophils % 0.2 %
[2021-01-31 22:00] LABS: Hematocrit 30.6 % (37.5-50.1); Hemoglobin 8.9 g/dL (12.9-16.9); Immature Granulocytes % 1.7 % (0-4); Lymphocytes # 0.8 K/mcL (0.6-4.6); Lymphocytes % 6.3 %; Mean Corpuscular HGB Conc 29.1 g/dL (31.6-35.5); Mean Corpuscular Hemoglobin 24.5 pg (28.0-33.3); Mean Corpuscular Volume 84.1 fL (83.0-100.0); Mean Platelet Volume 9.6 fL (9.4-12.4); Monocytes # 0.9 K/mcL (0.0-1.3); Monocytes % 7.6 %; Platelet Count 257 K/mcL (140-400); Red Blood Count 3.64 M/mcL (4.19-5.50); Red Cell Distribution Width 19.3 % (11.5-14.5); Segmented Neutrophils % 84.2 %; White Blood Count 12.1 K/mcL (4.3-11.1)
[2021-01-31 22:01] LABS: Neutrophils # 10.2 K/mcL (1.6-8.9)
[2021-01-31 22:07] LABS: Alanine Aminotransferase 12 Units/L (7-52); Albumin/Globulin Ratio 0.8 (1.1-2.2); Alkaline Phosphatase 202 Units/L (34-104); Aspartate Amino Transferase 14 Units/L (13-39); BUN/Creatinine Ratio 35 (6-26); Bilirubin,Total 0.4 mg/dL (0.3-1.0); Blood Urea Nitrogen 25 mg/dL (8-23); C-Reactive Protein 180 mg/L (Less than 10); Calcium 9.2 mg/dL (8.6-10.3); Carbon Dioxide 22 mEq/L (23-29); Chloride 95 mEq/L (98-107); Globulin 3.9 g/dL (2.4-3.5); Glucose 186 mg/dL (70-105); Osmolality,Calculated 277 (280-300); Potassium 4.3 mEq/L (3.5-5.1); Sodium 129 mEq/L (136-145); Total Protein 6.9 g/dL (6.4-8.9); eGFR For African Americans > 60 (> 60); eGFR For Non-African Americans > 60 (> 60)
[2021-01-31 23:28] LABS: Acanthocytes 1+ (Not Present); Platelet Estimate Normal (Normal)
[2021-02-01] MEDS ORDERED: Furosemide 20 MG/2 ML VIAL IVP ONE (00:01)
[2021-02-01 00:08] LABS: Bilirubin,Urine Negative (Negative); Blood,Urine Trace-intact (Negative); Clarity,Urine Clear (Clear); Color,Urine Yellow (Yellow); Glucose,Urine (UA) Normal (Normal); Ketones,Urine Negative (Negative); Leukocyte Esterase,Urine Negative (Negative); Nitrite,Urine Negative (Negative); PH,Urine 5.5 pH Units (5.0-8.0); Protein,Urine 30 mg/dL (Neg-Trace); Specific Gravity,Urine >= 1.030 (1.010-1.025); Urobilinogen,Urine Normal (Normal)
[2021-02-01] MEDS ORDERED: Dextrose Gel 15 GM/37.5 ML TUBE PO PRN ×2 (00:13)
[2021-02-01] MEDS ORDERED: D5% in Water 1,000 ML IVC PRN (00:13)
[2021-02-01] MEDS ORDERED: *HR* Dextrose 50 % in Water (Syg) 50 ML SYRINGE IVP PRN (00:13)
[2021-02-01 00:16] LABS: Hyaline Casts,Urine Moderate per lpf (None Seen); Mucus,Urine Many per lpf (None-Few); RBC,Urine 0-3 per hpf (0-3); Squamous Epithelial Cell,Urine Few per hpf (None-Few)
[2021-02-01] MEDS ORDERED: Isovue-370 500 ML BOTTLE IVP ONE (00:19)
[2021-02-01 01:34] LABS: Hematocrit 27.2 % (37.5-50.1); Hemoglobin 8.1 g/dL (12.9-16.9); Mean Corpuscular HGB Conc 29.8 g/dL (31.6-35.5); Mean Corpuscular Hemoglobin 24.3 pg (28.0-33.3); Mean Corpuscular Volume 81.7 fL (83.0-100.0); Mean Platelet Volume 9.1 fL (9.4-12.4); Platelet Count 189 K/mcL (140-400); Red Blood Count 3.33 M/mcL (4.19-5.50); Red Cell Distribution Width 19.1 % (11.5-14.5); White Blood Count 9.2 K/mcL (4.3-11.1)
[2021-02-01 01:55] LABS: BUN/Creatinine Ratio 43 (6-26); Blood Urea Nitrogen 23 mg/dL (8-23); Carbon Dioxide 27 mEq/L (23-29); Chloride 97 mEq/L (98-107); Glucose 62 mg/dL (70-105); Osmolality,Calculated 272 (280-300); Potassium 3.8 mEq/L (3.5-5.1); Sodium 130 mEq/L (136-145); eGFR For African Americans > 60 (> 60); eGFR For Non-African Americans > 60 (> 60)
[2021-02-01 02:32] LABS: % Iron Saturation 5 % (20-55); Iron 12 mcg/dL (65-175); Transferrin 169 mg/dL (203-362)
[2021-02-01 02:49] LABS: Ferritin 239 ng/mL (20-250)
[2021-02-01 02:55] LABS: Folate 4.2 ng/mL (3.0-16.0)
[2021-02-01] MEDS: *HR* OxyCODONE Immed Rel 15 MG TABLET PO PRN ×3 (04:36→12:49)
[2021-02-01] MEDS ORDERED: *HR* HYDROmorphone (PF) 1 MG/ML SYRINGE IVP ONE (05:18)
[2021-02-01] MEDS: Cefepime HCl 2,000 MG in 0.9 % Sodium Chloride Mini Bag 100 ML IVPB SCH ×2 (05:41→12:49)
[2021-02-01] MEDS: Pantoprazole 40 MG VIAL IVP SCH ×2 (05:43→17:11)
[2021-02-01] MEDS ORDERED: Doxycycline 100 MG in 0.9 % Sodium Chloride Mini Bag 100 ML IVPB SCH (06:00)
[2021-02-01] MEDS ORDERED: Furosemide 40 MG/4 ML VIAL IVP ONE (06:00)
[2021-02-01] MEDS: Insulin LISPRO 300 UNITS/3 ML VIAL SUBQ SCH ×3 (07:54→16:42)
[2021-02-01] MEDS: dexAMETHasone 4 MG TABLET PO SCH (08:04)
[2021-02-01] MEDS ORDERED: *HR* HYDROmorphone 2 MG/ML SYRINGE IVP PRN (16:37)
[2021-02-01] MEDS: levoFLOXacin 750 MG/150 ML 750 MG/150 ML BAG IVPB SCH (17:05)
[2021-02-01] MEDS: Nitroglycerin 0.4 MG TAB.SUBL SL PRN ×2 (18:10→18:16)
[2021-02-01] MEDS ORDERED: Ringers Solution, Lactated 1,000 ML IVC ONE (18:27)
[2021-02-01] MEDS ORDERED: Perflutren Lipid Microsphere 1.3 ML in 0.9 % Sodium Chloride 8.7 ML IVP PRN (18:48)
[2021-02-01] MEDS: *HR* Methadone 10 MG TABLET PO SCH (19:38)
[2021-02-01] MEDS: Magnesium Oxide 400 MG TABLET PO SCH (19:38)
[2021-02-01] MEDS ORDERED: Albumin 25% 25gram/100mL 25 GM/100 ML IV.SOLN IVPB ONE (20:41)
[2021-02-01] MEDS ORDERED: Morphine Sulfate 2 MG/ML SYRINGE IVP ONE (21:15)
[2021-02-02 01:08] LABS: Basophils % 0.1 %; Hematocrit 26.8 % (37.5-50.1); Hemoglobin 7.8 g/dL (12.9-16.9); Immature Granulocytes % 1.4 % (0-4); Lymphocytes # 0.5 K/mcL (0.6-4.6); Lymphocytes % 6.6 %; Mean Corpuscular HGB Conc 29.1 g/dL (31.6-35.5); Mean Corpuscular Hemoglobin 23.6 pg (28.0-33.3); Mean Platelet Volume 9.4 fL (9.4-12.4); Monocytes # 0.6 K/mcL (0.0-1.3); Monocytes % 7.3 %; Neutrophils # 6.8 K/mcL (1.6-8.9); Platelet Count 171 K/mcL (140-400); Red Blood Count 3.31 M/mcL (4.19-5.50); Segmented Neutrophils % 84.6 %; White Blood Count 8.1 K/mcL (4.3-11.1)
[2021-02-02 01:45] LABS: Alanine Aminotransferase 9 Units/L (7-52); Albumin/Globulin Ratio 0.9 (1.1-2.2); Alkaline Phosphatase 221 Units/L (34-104); Aspartate Amino Transferase 16 Units/L (13-39); BUN/Creatinine Ratio 39 (6-26); Bilirubin,Direct 0.2 mg/dL (0.0-0.2); Bilirubin,Indirect 0.5 mg/dL (0.0-1.0); Bilirubin,Total 0.7 mg/dL (0.3-1.0); Blood Urea Nitrogen 19 mg/dL (8-23); Carbon Dioxide 28 mEq/L (23-29); Chloride 95 mEq/L (98-107); Globulin 3.2 g/dL (2.4-3.5); Glucose 101 mg/dL (70-105); Magnesium 1.6 mg/dL (1.6-2.6); Osmolality,Calculated 274 (280-300); Potassium 3.8 mEq/L (3.5-5.1); Sodium 131 mEq/L (136-145); Total Protein 6.2 g/dL (6.4-8.9); eGFR For African Americans > 60 (> 60); eGFR For Non-African Americans > 60 (> 60)
[2021-02-02] MEDS: Pantoprazole 40 MG VIAL IVP SCH ×2 (06:45→17:14)
[2021-02-02] MEDS: *HR* OxyCODONE Immed Rel 15 MG TABLET PO PRN ×2 (06:46→11:12)
[2021-02-02] MEDS: Insulin LISPRO 300 UNITS/3 ML VIAL SUBQ SCH ×3 (07:37→17:16)
[2021-02-02] MEDS: *HR* Methadone 10 MG TABLET PO SCH ×3 (07:57→21:00)
[2021-02-02] MEDS: Magnesium Oxide 400 MG TABLET PO SCH ×2 (07:57→21:00)
[2021-02-02] MEDS: dexAMETHasone 4 MG TABLET PO SCH ×2 (07:57→11:30)
[2021-02-02] MEDS ORDERED: Morphine Sulfate 2 MG/ML SYRINGE IVP PRN (10:32)
[2021-02-02] MEDS: levoFLOXacin 750 MG/150 ML 750 MG/150 ML BAG IVPB SCH (15:15)
[2021-02-03] MEDS: Pantoprazole 40 MG VIAL IVP SCH ×2 (04:54→18:19)
[2021-02-03 06:04] LABS: Basophils % 0.3 %; Hematocrit 27.4 % (37.5-50.1); Hemoglobin 8.1 g/dL (12.9-16.9); Immature Granulocytes % 3.5 % (0-4); Lymphocytes # 0.7 K/mcL (0.6-4.6); Mean Corpuscular HGB Conc 29.6 g/dL (31.6-35.5); Mean Corpuscular Hemoglobin 23.9 pg (28.0-33.3); Mean Corpuscular Volume 80.8 fL (83.0-100.0); Mean Platelet Volume 9.8 fL (9.4-12.4); Monocytes # 0.7 K/mcL (0.0-1.3); Monocytes % 9.1 %; Neutrophils # 5.8 K/mcL (1.6-8.9); Platelet Count 200 K/mcL (140-400); Red Blood Count 3.39 M/mcL (4.19-5.50); Red Cell Distribution Width 18.7 % (11.5-14.5); Segmented Neutrophils % 78.1 %; White Blood Count 7.4 K/mcL (4.3-11.1)
[2021-02-03 06:24] LABS: Carbon Dioxide 29 mEq/L (23-29); Chloride 96 mEq/L (98-107); Glucose 170 mg/dL (70-105); Magnesium 1.9 mg/dL (1.6-2.6); Potassium 4.2 mEq/L (3.5-5.1); Sodium 132 mEq/L (136-145); eGFR For African Americans > 60 (> 60); eGFR For Non-African Americans > 60 (> 60)
[2021-02-03 06:39] LABS: BUN/Creatinine Ratio 34 (6-26); Blood Urea Nitrogen 16 mg/dL (8-23); Osmolality,Calculated 279 (280-300)
[2021-02-03] MEDS: *HR* Methadone 10 MG TABLET PO SCH ×3 (08:54→20:24)
[2021-02-03] MEDS: dexAMETHasone 4 MG TABLET PO SCH (08:54)
[2021-02-03] MEDS: Magnesium Oxide 400 MG TABLET PO SCH ×2 (08:54→20:24)
[2021-02-03] MEDS: Insulin LISPRO 300 UNITS/3 ML VIAL SUBQ SCH ×3 (08:55→18:20)
[2021-02-03] MEDS: *HR* OxyCODONE Immed Rel 15 MG TABLET PO PRN ×2 (09:06→14:37)
[2021-02-03] MEDS ORDERED: Heparin 1,000 UNITS/500 mL 500 ML ONE (12:44)
[2021-02-04 01:03] LABS: Hemoglobin 8.5 g/dL (12.9-16.9); Mean Corpuscular Volume 82.3 fL (83.0-100.0)
[2021-02-04 01:05] LABS: Basophils % 0.4 %; Hematocrit 29.2 % (37.5-50.1); Immature Granulocytes % 3.7 % (0-4); Lymphocytes # 0.8 K/mcL (0.6-4.6); Lymphocytes % 9.6 %; Mean Corpuscular HGB Conc 29.1 g/dL (31.6-35.5); Mean Corpuscular Hemoglobin 23.9 pg (28.0-33.3); Mean Platelet Volume 9.5 fL (9.4-12.4); Monocytes # 0.6 K/mcL (0.0-1.3); Monocytes % 7.9 %; Neutrophils # 6.2 K/mcL (1.6-8.9); Platelet Count 214 K/mcL (140-400); Red Blood Count 3.55 M/mcL (4.19-5.50); Red Cell Distribution Width 18.7 % (11.5-14.5); Segmented Neutrophils % 78.4 %; White Blood Count 7.9 K/mcL (4.3-11.1)
[2021-02-04 01:14] LABS: BUN/Creatinine Ratio 31 (6-26); Blood Urea Nitrogen 16 mg/dL (8-23); Carbon Dioxide 28 mEq/L (23-29); Chloride 97 mEq/L (98-107); Glucose 167 mg/dL (70-105); Magnesium 1.8 mg/dL (1.6-2.6); Osmolality,Calculated 281 (280-300); Potassium 4.2 mEq/L (3.5-5.1); Sodium 133 mEq/L (136-145); eGFR For African Americans > 60 (> 60); eGFR For Non-African Americans > 60 (> 60)
[2021-02-04 04:33] LABS: Anisocytosis 1+ (Not Present); Hypochromasia Present (Not Present)
[2021-02-04 04:34] LABS: Platelet Estimate Normal (Normal); Poikilocytosis 1+ (Not Present)
[2021-02-04] MEDS: Pantoprazole 40 MG VIAL IVP SCH ×2 (05:38→17:52)
[2021-02-04] MEDS: *HR* Methadone 10 MG TABLET PO SCH ×3 (09:57→20:19)
[2021-02-04] MEDS: dexAMETHasone 4 MG TABLET PO SCH (09:57)
[2021-02-04] MEDS: *HR* OxyCODONE Immed Rel 15 MG TABLET PO PRN ×2 (09:57→15:50)
[2021-02-04] MEDS: levoFLOXacin 750 MG TABLET PO SCH (09:57)
[2021-02-04] MEDS: Magnesium Oxide 400 MG TABLET PO SCH ×2 (09:57→20:19)
[2021-02-04] MEDS: Insulin LISPRO 300 UNITS/3 ML VIAL SUBQ SCH ×3 (09:58→17:52)
[2021-02-05 04:35] LABS: Hematocrit 32.3 % (37.5-50.1); Hemoglobin 9.4 g/dL (12.9-16.9); Mean Corpuscular HGB Conc 29.1 g/dL (31.6-35.5); Mean Corpuscular Hemoglobin 23.7 pg (28.0-33.3); Mean Corpuscular Volume 81.6 fL (83.0-100.0); Mean Platelet Volume 9.1 fL (9.4-12.4); Platelet Count 235 K/mcL (140-400); Red Blood Count 3.96 M/mcL (4.19-5.50); Red Cell Distribution Width 18.9 % (11.5-14.5); White Blood Count 9.8 K/mcL (4.3-11.1)
[2021-02-05 04:36] LABS: BUN/Creatinine Ratio 35 (6-26); Blood Urea Nitrogen 17 mg/dL (8-23); Calcium 9.2 mg/dL (8.6-10.3); Carbon Dioxide 29 mEq/L (23-29); Chloride 98 mEq/L (98-107); Glucose 94 mg/dL (70-105); Magnesium 1.9 mg/dL (1.6-2.6); Osmolality,Calculated 279 (280-300); Potassium 4.3 mEq/L (3.5-5.1); Sodium 134 mEq/L (136-145); eGFR For African Americans > 60 (> 60); eGFR For Non-African Americans > 60 (> 60)
[2021-02-05 05:47] LABS: Lymphocytes # 1.2 K/mcL (0.6-4.6); Monocytes # 0.4 K/mcL (0.0-1.3); Neutrophils # 8.2 K/mcL (1.6-8.9)
[2021-02-05 05:48] LABS: Platelet Estimate Normal (Normal)
[2021-02-05] MEDS: *HR* OxyCODONE Immed Rel 15 MG TABLET PO PRN ×3 (06:30→22:07)
[2021-02-05] MEDS: Pantoprazole 40 MG VIAL IVP SCH (06:31)
[2021-02-05] MEDS: Insulin LISPRO 300 UNITS/3 ML VIAL SUBQ SCH ×3 (07:22→16:57)
[2021-02-05] MEDS: levoFLOXacin 750 MG TABLET PO SCH (07:53)
[2021-02-05] MEDS: dexAMETHasone 4 MG TABLET PO SCH (07:53)
[2021-02-05] MEDS: Magnesium Oxide 400 MG TABLET PO SCH ×2 (07:53→20:24)
[2021-02-05] MEDS: *HR* Methadone 10 MG TABLET PO SCH ×3 (07:53→20:24)
[2021-02-05] MEDS: Apixaban 5 MG TABLET PO SCH (13:49)
[2021-02-05] MEDS: Lactobacillus 1 EACH CAP.SPRINK PO SCH (20:24)
[2021-02-06] MEDS: Apixaban 5 MG TABLET PO SCH ×2 (00:52→11:50)
[2021-02-06] MEDS: *HR* OxyCODONE Immed Rel 15 MG TABLET PO PRN ×3 (06:08→19:50)
[2021-02-06 06:23] LABS: Hematocrit 30.7 % (37.5-50.1); Hemoglobin 9.1 g/dL (12.9-16.9); Mean Corpuscular HGB Conc 29.6 g/dL (31.6-35.5); Mean Corpuscular Hemoglobin 23.8 pg (28.0-33.3); Mean Corpuscular Volume 80.2 fL (83.0-100.0); Mean Platelet Volume 9.3 fL (9.4-12.4); Monocytes # 0.9 K/mcL (0.0-1.3); Nucleated Red Blood Cells 0.2 /100 WBC (0); Platelet Count 234 K/mcL (140-400); Red Blood Count 3.83 M/mcL (4.19-5.50); Red Cell Distribution Width 18.8 % (11.5-14.5); White Blood Count 11.8 K/mcL (4.3-11.1)
[2021-02-06 06:33] LABS: BUN/Creatinine Ratio 40 (6-26); Blood Urea Nitrogen 19 mg/dL (8-23); Carbon Dioxide 29 mEq/L (23-29); Chloride 98 mEq/L (98-107); Glucose 100 mg/dL (70-105); Magnesium 1.8 mg/dL (1.6-2.6); Osmolality,Calculated 278 (280-300); Potassium 4.4 mEq/L (3.5-5.1); Sodium 133 mEq/L (136-145); eGFR For African Americans > 60 (> 60); eGFR For Non-African Americans > 60 (> 60)
[2021-02-06 06:47] LABS: Hypochromasia Present (Not Present); Lymphocytes # 2.4 K/mcL (0.6-4.6); Neutrophils # 8.5 K/mcL (1.6-8.9); Platelet Estimate Normal (Normal); Poikilocytosis 1+ (Not Present); Polychromasia 1+ (Not Present)
[2021-02-06] MEDS: Insulin LISPRO 300 UNITS/3 ML VIAL SUBQ SCH ×3 (07:18→15:49)
[2021-02-06] MEDS: Magnesium Oxide 400 MG TABLET PO SCH ×2 (08:23→21:43)
[2021-02-06] MEDS: levoFLOXacin 750 MG TABLET PO SCH (08:23)
[2021-02-06] MEDS: *HR* Methadone 10 MG TABLET PO SCH ×3 (08:23→21:43)
[2021-02-06] MEDS: Lactobacillus 1 EACH CAP.SPRINK PO SCH ×2 (08:23→21:43)
[2021-02-06] MEDS: dexAMETHasone 4 MG TABLET PO SCH (08:23)
[2021-02-07] MEDS: *HR* OxyCODONE Immed Rel 15 MG TABLET PO PRN ×2 (01:01→10:15)
[2021-02-07] MEDS: Apixaban 5 MG TABLET PO SCH ×2 (01:01→12:30)
[2021-02-07 07:57] LABS: Hematocrit 31.2 % (37.5-50.1); Hemoglobin 9.2 g/dL (12.9-16.9); Mean Corpuscular HGB Conc 29.5 g/dL (31.6-35.5); Mean Corpuscular Hemoglobin 23.7 pg (28.0-33.3); Mean Corpuscular Volume 80.2 fL (83.0-100.0); Mean Platelet Volume 9.8 fL (9.4-12.4); Platelet Count 240 K/mcL (140-400); Red Blood Count 3.89 M/mcL (4.19-5.50); Red Cell Distribution Width 19.1 % (11.5-14.5); White Blood Count 12.6 K/mcL (4.3-11.1)
[2021-02-07 08:00] LABS: BUN/Creatinine Ratio 40 (6-26); Blood Urea Nitrogen 19 mg/dL (8-23); Calcium 8.9 mg/dL (8.6-10.3); Carbon Dioxide 28 mEq/L (23-29); Chloride 98 mEq/L (98-107); Glucose 86 mg/dL (70-105); Magnesium 1.9 mg/dL (1.6-2.6); Osmolality,Calculated 282 (280-300); Potassium 4.5 mEq/L (3.5-5.1); Sodium 135 mEq/L (136-145); eGFR For African Americans > 60 (> 60); eGFR For Non-African Americans > 60 (> 60)
[2021-02-07] MEDS: Insulin LISPRO 300 UNITS/3 ML VIAL SUBQ SCH ×3 (08:00→16:21)
[2021-02-07 08:34] LABS: Lymphocytes # 1.3 K/mcL (0.6-4.6); Monocytes # 0.8 K/mcL (0.0-1.3); Neutrophils # 9.3 K/mcL (1.6-8.9)
[2021-02-07 08:37] LABS: Platelet Estimate Normal (Normal)
[2021-02-07] MEDS: dexAMETHasone 4 MG TABLET PO SCH (09:14)
[2021-02-07] MEDS: Magnesium Oxide 400 MG TABLET PO SCH (09:14)
[2021-02-07] MEDS: Lactobacillus 1 EACH CAP.SPRINK PO SCH (09:14)
[2021-02-07] MEDS: *HR* Methadone 10 MG TABLET PO SCH ×2 (09:15→15:01)
[2021-02-07] MEDS: levoFLOXacin 750 MG TABLET PO SCH (09:16)
[2021-02-07 11:13] VITALS: TEMP 98.3
[2021-02-07 15:38] VITALS: BP 102/66; PULSE 83; O2SAT 96
== END 2021-02-07 17:44 | disposition home health service (06) | DRG 314 ==
LOC: EMEROOARM 15:10 → 3BNU 15:10 → SUATTDRO 21:23 → 3BNU 23:01
PROVIDERS: ADMIT Student in an Organized Health Care Education/Training Program; ATTEND Pharmacist

== ENCOUNTER 2021-02-12 08:12 | Observation (INO) ==
[2021-02-12] MEDS ORDERED: *HR* Dextrose 50 % in Water (Syg) 50 ML SYRINGE ONE (08:23)
[2021-02-12 08:52] LABS: Basophils % 0.3 %; Hematocrit 32.5 % (37.5-50.1); Hemoglobin 9.3 g/dL (12.9-16.9); Mean Corpuscular HGB Conc 28.6 g/dL (31.6-35.5)
[2021-02-12 08:53] LABS: Eosinophils # 0.1 K/mcL (0.0-0.6); Eosinophils % 0.5 %; Lymphocytes # 0.9 K/mcL (0.6-4.6); Lymphocytes % 6.1 %; Mean Corpuscular Hemoglobin 23.7 pg (28.0-33.3); Mean Corpuscular Volume 82.9 fL (83.0-100.0); Mean Platelet Volume 9.5 fL (9.4-12.4); Neutrophils # 12.3 K/mcL (1.6-8.9); Platelet Count 228 K/mcL (140-400); Red Blood Count 3.92 M/mcL (4.19-5.50); Red Cell Distribution Width 19.7 % (11.5-14.5); Segmented Neutrophils % 83.1 %; White Blood Count 14.8 K/mcL (4.3-11.1)
[2021-02-12] MEDS ORDERED: *HR* Dextrose 50 % in Water (Syg) 50 ML SYRINGE IVP ONE ×2 (08:57→10:26)
[2021-02-12 09:13] LABS: BUN/Creatinine Ratio 28 (6-26); Blood Urea Nitrogen 19 mg/dL (8-23); Calcium 9.4 mg/dL (8.6-10.3); Carbon Dioxide 28 mEq/L (23-29); Chloride 94 mEq/L (98-107); Glucose 34 mg/dL (70-105); Osmolality,Calculated 273 (280-300); Potassium 3.8 mEq/L (3.5-5.1); Sodium 132 mEq/L (136-145); Troponin I 0.03 ng/mL (< 0.04); eGFR For African Americans > 60 (> 60); eGFR For Non-African Americans > 60 (> 60)
[2021-02-12 09:33] LABS: Anisocytosis 1+ (Not Present); Hypochromasia Present (Not Present); Platelet Estimate Normal (Normal)
[2021-02-12] MEDS ORDERED: D10% in Water 500 ML IVC SCH (09:45)
[2021-02-12] MEDS: D10% in Water 500 ML IVC SCH ×2 (10:29→17:10)
[2021-02-12] MEDS ORDERED: MOM Conc 10 ML UD.LIQ PO PRN (10:31)
[2021-02-12] MEDS ORDERED: Mag Hydrox/Al Hydrox/Simeth 30 ML UDC PO PRN (10:31)
[2021-02-12] MEDS ORDERED: Naloxone 0.4 MG/ML INJ IVP PRN (10:31)
[2021-02-12] MEDS ORDERED: Melatonin 3 MG TABLET PO PRN (10:31)
[2021-02-12] MEDS ORDERED: D5% in Water 1,000 ML IVC PRN (10:32)
[2021-02-12] MEDS ORDERED: Dextrose Gel 15 GM/37.5 ML TUBE PO PRN ×2 (10:32)
[2021-02-12] MEDS ORDERED: *HR* Dextrose 50 % in Water (Syg) 50 ML SYRINGE IVP PRN (10:32)
[2021-02-12] MEDS ORDERED: Apixaban 5 MG TABLET PO SCH (10:45)
[2021-02-12] MEDS: levoFLOXacin 750 MG TABLET PO SCH (13:02)
[2021-02-12] MEDS: *HR* OxyCODONE Immed Rel 15 MG TABLET PO PRN (13:02)
[2021-02-12] MEDS: Apixaban 5 MG TABLET PO SCH ×2 (13:03→21:02)
[2021-02-12] MEDS: *HR* Methadone 10 MG TABLET PO SCH ×2 (17:10→21:02)
[2021-02-12] MEDS: Lactobacillus 1 EACH CAP.SPRINK PO SCH (21:01)
[2021-02-13] MEDS: D10% in Water 500 ML IVC SCH ×2 (00:16→08:50)
[2021-02-13] MEDS: *HR* OxyCODONE Immed Rel 15 MG TABLET PO PRN ×2 (01:09→12:30)
[2021-02-13 07:19] LABS: Hematocrit 27.6 % (37.5-50.1); Hemoglobin 8.2 g/dL (12.9-16.9); Mean Corpuscular HGB Conc 29.7 g/dL (31.6-35.5); Mean Corpuscular Hemoglobin 23.6 pg (28.0-33.3); Mean Corpuscular Volume 79.3 fL (83.0-100.0); Mean Platelet Volume 9.9 fL (9.4-12.4); Platelet Count 166 K/mcL (140-400); Red Blood Count 3.48 M/mcL (4.19-5.50); Red Cell Distribution Width 19.1 % (11.5-14.5); White Blood Count 11.1 K/mcL (4.3-11.1)
[2021-02-13 07:34] LABS: Alanine Aminotransferase 16 Units/L (7-52); Albumin 2.6 g/dL (3.5-5.7); Albumin/Globulin Ratio 0.9 (1.1-2.2); Alkaline Phosphatase 362 Units/L (34-104); Aspartate Amino Transferase 35 Units/L (13-39); BUN/Creatinine Ratio 20 (6-26); Bilirubin,Total 0.6 mg/dL (0.3-1.0); Blood Urea Nitrogen 9 mg/dL (8-23); Calcium 8.9 mg/dL (8.6-10.3); Carbon Dioxide 26 mEq/L (23-29); Chloride 96 mEq/L (98-107); Globulin 2.9 g/dL (2.4-3.5); Glucose 99 mg/dL (70-105); Osmolality,Calculated 271 (280-300); Potassium 4.2 mEq/L (3.5-5.1); Sodium 131 mEq/L (136-145); Total Protein 5.5 g/dL (6.4-8.9); eGFR For African Americans > 60 (> 60); eGFR For Non-African Americans > 60 (> 60)
[2021-02-13] MEDS: dexAMETHasone 4 MG TABLET PO SCH (08:52)
[2021-02-13] MEDS: Apixaban 5 MG TABLET PO SCH ×2 (08:53→21:57)
[2021-02-13] MEDS: levoFLOXacin 750 MG TABLET PO SCH (08:53)
[2021-02-13] MEDS: Lactobacillus 1 EACH CAP.SPRINK PO SCH ×2 (08:53→21:57)
[2021-02-13] MEDS: *HR* Methadone 10 MG TABLET PO SCH ×3 (08:53→21:57)
[2021-02-13] MEDS: Ondansetron ODT 4 MG TAB.RAPDIS SL PRN ×2 (10:20→21:56)
[2021-02-13 12:04] LABS: Estimated Average Glucose 128 mg/dl; Hemoglobin A1C 6.1 %
[2021-02-13] MEDS ORDERED: Insulin LISPRO 300 UNITS/3 ML VIAL SUBQ SCH (21:00)
[2021-02-13] MEDS: Insulin LISPRO 300 UNITS/3 ML VIAL SUBQ SCH (21:54)
[2021-02-14] MEDS: *HR* Methadone 10 MG TABLET PO SCH (08:10)
[2021-02-14] MEDS: dexAMETHasone 4 MG TABLET PO SCH (08:10)
[2021-02-14] MEDS: Apixaban 5 MG TABLET PO SCH (08:10)
[2021-02-14] MEDS: Lactobacillus 1 EACH CAP.SPRINK PO SCH (08:11)
[2021-02-14] MEDS: levoFLOXacin 750 MG TABLET PO SCH (08:11)
[2021-02-14] MEDS: Ondansetron ODT 4 MG TAB.RAPDIS SL PRN (08:16)
[2021-02-14] MEDS: Insulin LISPRO 300 UNITS/3 ML VIAL SUBQ SCH ×2 (09:36→12:06)
[2021-02-14] MEDS: *HR* OxyCODONE Immed Rel 15 MG TABLET PO PRN (10:10)
[2021-02-14 12:11] VITALS: BP 125/82; PULSE 88; TEMP 98.4; O2SAT 96
== END 2021-02-14 13:57 | disposition home health service (06) ==
LOC: EMEROOARM 08:12 → 3ANU 08:12 → SUATTDRO 10:54 → 3ANU 11:55
PROVIDERS: ADMIT Student in an Organized Health Care Education/Training Program; ATTEND Registered Nurse